=== PATIENT | male | born 1955 | race Two or more races ===

== ENCOUNTER 2019-10-26 17:50 | Emergency (ER) | payer SELFPAY ==
[~2019-10-26] VITALS: Ht 167.6 cm; Wt 58.0 kg
[2019-10-26] MEDS ORDERED: IBUPROFEN 600MG TABLET PO STA (18:12)
[2019-10-26 18:39] LABS: CLARITY URINE CLEAR (CLEAR); COLOR URINE YELLOW (YELLOW); KETONES URINE NEGATIVE (NEGATIVE); LEUKOCYTE ESTERASE URINE NEGATIVE (NEGATIVE); NITRITE URINE NEGATIVE (NEGATIVE); OCCULT BLOOD URINE NEGATIVE (NEGATIVE); PH URINE 6.5 (4.5-8.0); PROTEIN URINE NEGATIVE (NEGATIVE); SPECIFIC GRAVITY URINE 1.017 (1.005-1.030); UROBILINOGEN URINE 0.2 E.U./dL (0.2-1.0)
[2019-10-26 18:51] LABS: BASOPHILS % 0.6 % (0.0-2.0); EOSINOPHILS % 1.6 % (0.0-5.0); HEMATOCRIT. 41.5 % (42.0-52.0); HEMOGLOBIN. 14.1 g/dL (14.0-18.0); LYMPHOCYTES % 18.5 % (20.0-50.0); MEAN CORPUSCULAR HEMOGLOBIN 30.4 pg (28.0-32.0); MEAN CORPUSCULAR VOLUME 89.6 fL (80.0-94.0); MEAN PLATELET VOLUME 9.6 fl (7.4-10.4); MONOCYTES % 7.2 % (2.0-8.0); NEUTROPHILS % 72.1 % (40.0-76.0); PLATELET 158 x1000/uL (130-400); RED BLOOD CELL COUNT 4.63 mill/uL (4.7-6.1); RED CELL DISTRIBUTION WIDTH 13.8 % (11.6-14.6)
[2019-10-26 18:59] LABS: CHLORIDE 105 mEq/L (98-107)
[2019-10-26 20:22] VITALS: BP 121/74
== END 2019-10-26 20:23 | disposition home or self-care (01) ==
LOC: ER 17:50
DX: S39.012A Strain of muscle, fascia and tendon of lower back, initial encounter (principal); X58.XXXA Exposure to other specified factors, initial encounter; Y93.89 Activity, other specified; Y92.89 Other specified places as the place of occurrence of the external cause; Y99.8 Other external cause status; E78.00 Pure hypercholesterolemia, unspecified
CPT/HCPCS: 36415; 74176; 80053; 81003; 85025; 99284